=== PATIENT | female | born 1955 | race Caucasian/White ===

== ENCOUNTER → 2017-04-03 | Outpatient (CLI) | payer OTHER ==
--- NOTE | ~2017-04-03 | BD1 ---
[facility] A Service of [facility] & [facility] RADIOLOGY TEXT RESULTS PATIENT: SCOTTY VERDUZCO LOCATION: [facility] : 51 UNIT #: [id number] AGE: [address]: Génesis Murray MD SEX: F ORDER DR: [id number] [facility] [address] [place], [place] [address] [id number] O MR#: [id number] Acc #: [id number] NAME: SCOTTY VERDUZCO : 1955 SEX: F STUDY DATE/TIME: 04/03/2017 16:31 UNIT: [facility] ROOM: STUDY DESCRIPTION: BD Dexa Bone Dens 1+ Site Attending Physician: Génesis Murray M.D. Referring Physician: Génesis Murray M.D. Ordering Physician: Génesis Murray M.D. Primary Care Physician: Génesis Murray M.D. MEDICAL IMAGING REPORT This report is preliminary unless electronic signature is present EXAM DXA scan, 04/03/2017. HISTORY Status post menopause with no hormone replacement therapy. Osteopenia. Hyperthyroidism and arthritis. Family history of osteoporosis in mother. Smoking history for 10 years. Fracture of ulna and radius in 2010. FINDINGS Bone mineral density in the lumbar spine from L1 through L4 was 0.783 g/cm2, which is 2.4 standard deviations below the mean when compared to the young adult reference population, which is characteristic of osteopenia. This is 0.7 standard deviations below the mean when compared to the age-matched population. Compared with 03/01/2015, there has been an increase in bone mineral density in the lumbar spine of 4.8%. Bone mineral density in the left hip was 0.75 g/cm2, which is 1.6 standard deviations below the mean when compared to the young adult reference population, which is characteristic of osteopenia. This is 0.4 standard deviations below the mean when compared to the age-matched population. Compared with 03/01/2015, there has been an increase in bone mineral density in the left hip of 9.9%. IMPRESSION Bone mineral density in the lumbar spine and the left hip characteristic of osteopenia. Compared with 03/01/2015, there has been an increase in bone mineral density in the lumbar spine and the left hip. Dictated by... Dc Jolly M.D. THIS IS AN ELECTRONICALLY VERIFIED REPORT Dc Jolly M.D. at 04/04/2017 10:21 AM KRT/pc [facility] A Service of [facility] RADIOLOGY TEXT RESULTS PATIENT: SCOTTY VERDUZCO LOCATION: [facility] #: [id number] : 51 UNIT #: [id number] AGE: [address]: Génesis Murray MD SEX: F ORDER DR: TD: 04/04/2017 05:53 JOB #: [id number] MEDICAL IMAGING REPORT Page 1 of 1 COPY
== END | disposition home or self-care (01) ==
LOC: CWCC 16:19
DX: M81.0 Age-related osteoporosis without current pathological fracture (principal); M85.89 Other specified disorders of bone density and structure, multiple sites
CPT/HCPCS: 77080